=== PATIENT | female | born 1985 | race Caucasian/White ===

== ENCOUNTER → 2023-08-09 08:27 | Outpatient (REF) | payer OTHER, SELFPAY | LOC: PNTC 08:27 | PROVIDERS: ATTENDING PHYSICIAN Advanced Practice Midwife | DX: O09.529 Supervision of elderly multigravida, unspecified trimester (principal) | CPT/HCPCS: 76816 ==

== ENCOUNTER 2023-09-20 05:33 | Inpatient (IN) | payer OTHER, SELFPAY ==
[2023-09-20 05:39] VITALS: BP 102/60; BMI 31.9
[2023-09-20 06:39] LABS: Hematocrit 35.3 % (37.0-47.0); Hemoglobin 11.9 g/dL (12.0-16.0); Mean Corp Hgb Conc. 33.7 g/dL (33.0-37.0); Mean Corpuscular Hgb 26.7 pg (27.0-31.0); Mean Corpuscular Volume 79.3 fL (81.0-99.0); Mean Platelet Volume 9.3 fL (7.4-10.4); Platelet Count 206 10^3/uL (130-400); Red Blood Cell Count 4.45 10^6/uL (4.20-5.40); Red Cell Dist. Width 14.9 % (11.5-14.5); White Blood Cell Count 7.3 10^3/uL (4.8-10.8)
[2023-09-20] MEDS: GENTAMICIN 60 MG IV (07:18)
[2023-09-20] MEDS: BICITRA 30 ML PO (07:18)
[2023-09-20] MEDS: TYLENOL 1000 MG PO (07:18)
[2023-09-20] MEDS: CLEOCIN 50 IV (07:19)
[2023-09-20] MEDS: PITOCIN 30 UNITS/NSS 500 ML IV (08:32)
[2023-09-20] MEDS: TORADOL 15 MG IV ×3 (10:15→22:01)
[2023-09-20] MEDS: PRENATAL PLUS 1 TABLET PO (22:01)
[2023-09-21] MEDS: BENADRYL 25 MG PO (01:15)
[2023-09-21] MEDS: TORADOL 15 MG IV (03:45)
[2023-09-21 05:59] LABS: Hematocrit 28.4 % (37.0-47.0); Hemoglobin 9.4 g/dL (12.0-16.0); Mean Corp Hgb Conc. 33.1 g/dL (33.0-37.0); Mean Corpuscular Hgb 27.1 pg (27.0-31.0); Mean Corpuscular Volume 81.8 fL (81.0-99.0); Mean Platelet Volume 9.5 fL (7.4-10.4); Platelet Count 202 10^3/uL (130-400); Red Blood Cell Count 3.47 10^6/uL (4.20-5.40); White Blood Cell Count 9.9 10^3/uL (4.8-10.8)
[2023-09-21] MEDS: SYNTHROID 100 MCG PO (06:47)
--- NOTE | 2023-09-21 07:18 | W.PN.ANS.POP ---
Anesthesia Post Operative
- Anesthesia Post Op Note
Vital Signs Stable-See Nursing Note: Yes
Airway Patent: Yes
Adequate Pain Control: Yes
Change in Mental Status: No
Current Postoperative Nausea & Vomiting: No
Anesthesia Complications: No
General Anesthetic Recall: No
Unplanned Admission: No
Post Op Hydration Adequate: Yes
[2023-09-21] MEDS: TORADOL IV (11:21)
[2023-09-21] MEDS: TYLENOL 650 MG PO ×3 (11:21→22:13)
[2023-09-21] MEDS: MOTRIN 600 MG PO ×3 (11:22→23:19)
[2023-09-21] MEDS: PRENATAL PLUS 1 TABLET PO (22:13)
[2023-09-22] MEDS: SYNTHROID 100 MCG PO (06:25)
[2023-09-22] MEDS: MOTRIN 600 MG PO ×2 (08:23→16:59)
[2023-09-22] MEDS: SENOKOT-S 1 TABLET PO (08:23)
[2023-09-22] MEDS: TYLENOL 650 MG PO ×2 (08:24→16:58)
[2023-09-22] MEDS: PRENATAL PLUS 1 TABLET PO (22:25)
[2023-09-23] MEDS: MOTRIN 600 MG PO (02:57)
[2023-09-23] MEDS: TYLENOL 650 MG PO (02:57)
[2023-09-23] MEDS: SYNTHROID 100 MCG PO (06:31)
[2023-09-23] MEDS: SENOKOT-S 1 TABLET PO (07:53)
[2023-09-23 12:09] LABS: Syphilis/T. pallidum Ab Reflex Negative (Negative)
== END 2023-09-23 12:17 | disposition home or self-care (01) | DRG 788 ==
LOC: LDRP 05:33
PROVIDERS: Obstetrics & Gynecology; ADMITTING PHYSICIAN Advanced Practice Midwife
PROC: 10D00Z1 Extraction of Products of Conception, Low, Open Approach (ICD-10-PCS; 2023-09-20)
DX: O34.211 Maternal care for low transverse scar from previous cesarean delivery (principal); N85.8 Other specified noninflammatory disorders of uterus; O48.0 Post-term pregnancy; Z3A.40 40 weeks gestation of pregnancy; Z37.0 Single live birth; O99.824 Streptococcus B carrier state complicating childbirth
CPT/HCPCS: 59025; 85027; 86780; 86850; 86900; 86901